=== PATIENT | female | born 1935 | race Caucasian/White ===

== ENCOUNTER 2018-07-27 07:23 | Emergency (ER) | payer OTHER ==
[~2018-07-27] VITALS: Ht 154.9 cm; Wt 45.4 kg
[~2018-07-27 07:23] MED LIST: ALTACE; ALTACE5 MG; ASA81 MG PO; DICLOFENAC POTA50 MG PO; LIPITOR20 MG PO; NEURONTIN300 MG; PROTONIX40 MG PO; XANAX2 MG PO; ZOFRAN4 MG PO
[2018-07-27] MEDS ORDERED: RESTORIL30 MG PO (15:34)
== END 2018-07-27 15:38 | disposition home or self-care (01) ==
LOC: ER 07:23
DX: B34.9 Viral infection, unspecified (principal); E86.0 Dehydration; K29.70 Gastritis, unspecified, without bleeding

== ENCOUNTER 2018-08-05 07:16 | Emergency (ER) | payer OTHER ==
[~2018-08-05] VITALS: Ht 157.5 cm; Wt 45.4 kg
[~2018-08-05 07:16] MED LIST changes: +RESTORIL30 MG PO
[2018-08-05] MEDS ORDERED: PEPCID AC20 MG PO (14:10)
[2018-08-05] MEDS ORDERED: INTESTINEX680 M1 PO (14:10)
[2018-08-05] MEDS ORDERED: CLONAZEPAM0.5 MG PO (14:10)
== END 2018-08-05 14:30 ==
LOC: ER 07:16
DX: K29.60 Other gastritis without bleeding (principal); F06.4 Anxiety disorder due to known physiological condition

== ENCOUNTER 2018-09-16 11:26 | Emergency (ER) | payer OTHER ==
[~2018-09-16] VITALS: Ht 152.4 cm; Wt 45.4 kg
[~2018-09-16 11:26] MED LIST changes: +CLONAZEPAM0.5 MG PO; +INTESTINEX680 M1 PO; +PEPCID AC20 MG PO
[2018-09-16] MEDS ORDERED: CLONAZEPAM0.5 MG PO (11:39)
== END 2018-09-16 12:29 | disposition home or self-care (01) ==
LOC: ER 11:26
DX: Z76.0 Encounter for issue of repeat prescription (principal)

== ENCOUNTER 2018-09-26 08:30 | Emergency (ER) | payer OTHER ==
[~2018-09-26] VITALS: Ht 152.4 cm; Wt 45.4 kg
== END 2018-09-26 14:44 | disposition home or self-care (01) ==
LOC: ER 08:30
DX: K31.84 Gastroparesis (principal); R06.02 Shortness of breath; F41.8 Other specified anxiety disorders

== ENCOUNTER 2018-09-30 01:28 | Emergency (ER) | payer OTHER ==
[~2018-09-30] VITALS: Ht 152.4 cm; Wt 45.4 kg
[2018-09-30] MEDS ORDERED: PEPCID40 MG PO (07:39)
[2018-09-30] MEDS ORDERED: BICARSIM FORTE125 MG PO (07:39)
[2018-09-30] MEDS ORDERED: LEVSIN/SL0.125 MG SL (07:39)
== END 2018-09-30 08:31 | disposition home or self-care (01) ==
LOC: ER 01:28
DX: K29.60 Other gastritis without bleeding (principal); J11.1 Influenza due to unidentified influenza virus with other respiratory manifestations; R50.9 Fever, unspecified

== ENCOUNTER 2018-10-13 09:53 | Emergency (ER) | payer OTHER ==
[~2018-10-13] VITALS: Ht 152.4 cm; Wt 43.1 kg
[~2018-10-13 09:53] MED LIST changes: +BICARSIM FORTE125 MG PO; +LEVSIN/SL0.125 MG SL; +PEPCID40 MG PO
[2018-10-13] MEDS ORDERED: CLONAZEPAM1 MG PO (14:46)
== END 2018-10-13 14:56 | disposition home or self-care (01) ==
LOC: ER 09:53
DX: G89.29 Other chronic pain (principal); M54.5 Low back pain

== ENCOUNTER 2018-10-31 07:13 | Emergency (ER) | payer OTHER ==
[~2018-10-31] VITALS: Ht 154.9 cm; Wt 45.4 kg
[~2018-10-31 07:13] MED LIST changes: +CLONAZEPAM1 MG PO
== END 2018-10-31 09:29 | disposition home or self-care (01) ==
LOC: ER 07:13
DX: K29.60 Other gastritis without bleeding (principal)

== ENCOUNTER → 2019-01-09 | Emergency (ER) | payer OTHER ==
[~2019-01-09] VITALS: Ht 157.5 cm; Wt 45.4 kg
[~2019-01-09] MED LIST changes: +ACID REDUCER20 M1; +ALTACE1.25 MG; +FORTAMET500 MG
== END | disposition home or self-care (01) ==
LOC: ER 07:10
DX: K57.30 Diverticulosis of large intestine without perforation or abscess without bleeding (principal); N20.0 Calculus of kidney; R10.32 Left lower quadrant pain; R10.31 Right lower quadrant pain

== ENCOUNTER 2019-01-15 07:46 | Emergency (ER) | payer OTHER ==
[~2019-01-15] VITALS: Ht 152.4 cm; Wt 43.5 kg
== END 2019-01-15 09:07 | disposition home or self-care (01) ==
LOC: ER 07:46
DX: K29.60 Other gastritis without bleeding (principal); R10.13 Epigastric pain